=== PATIENT | female | born 1975 ===

== ENCOUNTER 2021-02-24 06:00 | Day surgery (SDC) | payer OTHER ==
[~2021-02-24 06:00] MED LIST: ACETAMINOOPHEN-1 TAB; AZITHROMYCIN500 MG; LEVSIN0.125 MG
== END 2021-02-24 11:00 | disposition home or self-care (01) ==
LOC: AMB-ENDOS 06:00
PROVIDERS: ATTEND Surgery
DX: K62.89 Other specified diseases of anus and rectum (principal); K64.8 Other hemorrhoids; Z20.822 Contact with and (suspected) exposure to COVID-19

== ENCOUNTER 2022-03-31 10:19 | Outpatient (CLI) | payer OTHER | END 2022-03-31 10:22 | disposition home or self-care (01) | LOC: RAD 10:19 | PROVIDERS: ATTEND Colon & Rectal Surgery | DX: K59.00 Constipation, unspecified (principal) ==